=== PATIENT | male | born 1975 | race African-American/Black ===

== ENCOUNTER 2017-12-13 07:36 | Day surgery (SDC) | payer OTHER ==
[2017-12-10 12:15] VITALS: BMI 32.8
[2017-12-13] MEDS ORDERED: CEFAZOLIN/Water 2 GM/20 ML SYRINGE ONE (10:07)
[2017-12-13 10:34] LABS: #Basophils 0.1 thou/uL (0.0-0.2); #Eosinphils 0.2 thou/uL (0.0-0.7); #Lymphocytes 2.3 thou/uL (1.20-3.40); #Monocytes 0.4 thou/uL (0.11-0.59); #Neutrophils 2.1 thou/uL (1.40-6.50); %Basophils 1.2 % (0.0-1.0); %Eosinophils 4.5 % (0.0-10.0); %Monocytes 7.8 % (0.0-10.0); %Neutrophils 41.5 % (42.0-75.0); Hemoglobin 15.6 g/dL (14.0-18.0); Mean Corpuscular HGB CONC 33.1 g/dL (32.0-36.0); Mean Corpuscular Hemoglobin 27.8 pg (27.0-31.0); Mean Corpuscular Volume 84.2 fl (80.0-94.0); Mean Platelet Volume 6.2 fL (7.4-10.4); Platelet Count 231 thou/uL (130-400); RBC Distribution Width 12.6 % (11.5-14.5); Red Blood Cell (RBC) Count 5.59 mill/uL (4.70-6.10)
[2017-12-13 11:11] LABS: Anion Gap 13 mmol/L (10-20); BUN (Urea Nitrogen) 14 mg/dL (8.9-20.6); Calc. Creatinine Clearance 138 mL/min (70-130); Calcium 9.4 mg/dL (7.8-10.44); Carbon Dioxide 25 mmol/L (22-29); Chloride 107 mmol/L (98-107); Estimated GFR-MDRD Greater than 90; Glucose 95 mg/dL (70-105); Potassium 4.6 mmol/L (3.5-5.1); Sodium 140 mmol/L (136-145)
[2017-12-13] MEDS ORDERED: HYDROmorphone 0.5 MG/0.5 ML SYRINGE ONE (12:14)
[2017-12-13] MEDS ORDERED: Midazolam HCl 2 mg/2 ml Vial ONE (12:14)
[2017-12-13] MEDS ORDERED: Fentanyl 100 MCG/2 ML VIAL ONE ×2 (12:14→13:35)
[2017-12-13] MEDS ORDERED: Promethazine HCl 25 MG/ML VIAL ONE (12:14)
--- NOTE | 2017-12-13 13:08 | OP ---
DATE OF PROCEDURE: 12/13/2017 SURGEON: Gómez Coppola M.D. CABLE WORKER HELPER: Alysha Jackman PROCEDURE: Right L5-S1 microdiskectomy. DESCRIPTION OF PROCEDURE: The patient was brought to the operating room and intubated. He was marsha d in the prone position on gel-filled chest rolls. Incision made exposing L5 and S1 on the right and our level was confirmed by x-ray. We performed right L5-S1 hemilaminectomy, removed the yellow liga ment, identified the right S1 nerve root and beneath it there was a large disc herniation. This was incised and debrided in multiple fragments and a complete decompression of right S1 was achieved. Th e wound was extensively irrigated, immaculate hemostasis was secured. Vancomycin powder was applied and the wound was closed in anatomic layers.
[2017-12-13] MEDS ORDERED: HYDROcodone/Acetaminophen 5/325 mg Tablet ONE (15:49)
[2017-12-13] MEDS ORDERED: Lidocaine 1% PF 5 ML VIAL ONE (16:14)
[2017-12-13] MEDS ORDERED: PHENYLEPHRINE-NS 100 MCG/ML 10 ML SYRINGE ONE (16:14)
[2017-12-13] MEDS ORDERED: PROPOFOL 200 MG/20 ML VIAL ONE (16:14)
[2017-12-13] MEDS ORDERED: Glycopyrrolate 0.2 MG/ML 5 ML SYRINGE ONE (16:14)
[2017-12-13] MEDS ORDERED: Ondansetron HCl/PF 4 MG/2 ML Vial ONE (16:14)
--- NOTE | 2017-12-13 21:03 | EKG ---
Test Reason : PREOP Blood Pressure : / mmHG Vent. Rate : 064 BPM Atrial Rate : 064 BPM P-R Int : 156 ms QRS Dur : 088 ms QT Int : 428 ms P-R-T Axes : 065 008 -07 degrees QTc Int : 441 ms Normal sinus rhythm with sinus arrhythmia ST elevation, consider early repolarization, pericarditis, or injury (favor early repolarizati) Abnormal ECG No previous ECGs available Confirmed by ISELA LIU ([id number]) on 12/13/2017 9:03:41 PM Referred By: MARION Confirmed By:ISELA LIU
== END 2017-12-13 16:20 | disposition home or self-care (01) ==
LOC: SDC 07:36 → EEVIPCON 07:36 → SDC 16:20
PROVIDERS: ATTEND Neurological Surgery
PROC: 01NB0ZZ Release Lumbar Nerve, Open Approach (ICD-10-PCS; principal; 2017-12-13)
PROC: 0ST20ZZ Resection of Lumbar Vertebral Disc, Open Approach (ICD-10-PCS; principal; 2017-12-13)
DX: Z79.51 Long term (current) use of inhaled steroids; G43.909 Migraine, unspecified, not intractable, without status migrainosus; M51.17 Intervertebral disc disorders with radiculopathy, lumbosacral region; F41.9 Anxiety disorder, unspecified; Z79.1 Long term (current) use of non-steroidal anti-inflammatories (NSAID); Z79.899 Other long term (current) drug therapy; G47.30 Sleep apnea, unspecified; Z68.32 Body mass index [BMI] 32.0-32.9, adult; F32.9 Major depressive disorder, single episode, unspecified; E78.5 Hyperlipidemia, unspecified; Z99.89 Dependence on other enabling machines and devices; E66.9 Obesity, unspecified
CPT/HCPCS: 76001; 80048; 85025; 93005; 93010; 96374; J1170; J2001; J2250; J2405; J2550; J2704; J3010; J3370

== ENCOUNTER 2018-09-29 13:04 | Outpatient (CLI) | payer OTHER ==
[~2018-09-29 13:04] MED LIST: Gadobenate Dimeglumine 529 MG/1 ML (20ML VIAL) ONE
--- NOTE | 2018-09-29 15:35 | MRI ---
MRI LUMBAR SPINE WITH AND WITHOUT CONTRAST: HISTORY: Patient with back pain that extends into right leg with numbness. FINDINGS: Pre- and [id number] MRI images of the lumbar spine obtained. T12-L1, L1-2: Unremarkable. L2-3, L3-4, and L4-5: There is some mild facet hypertrophy seen. There is a mild broad-based disk b ulge at the L4-5 level. No significant degree of central or neural foraminal narrowing I seen. L5-S1: There is a large right-sided lateral recess disk extrusion. The extruded material has 3 dime nsional measurements of 11 x 7.5 x 16 mm extending into the right epidural space compressing the righ t S1 thecal sac and right S1 nerve root. Mild to moderate left L5-S1 and right L5-S1 neural foramina l narrowing is seen due to facet hypertrophy. IMPRESSION: Large right S1 lateral recess disk extrusion. POS: [facility]
== END 2018-09-29 13:05 | disposition home or self-care (01) ==
LOC: TBSIIMAG 13:04
PROVIDERS: ATTEND Neurological Surgery
DX: M54.16 Radiculopathy, lumbar region (principal); M51.27 Other intervertebral disc displacement, lumbosacral region
CPT/HCPCS: 72158; A9579

== ENCOUNTER 2018-12-12 06:02 | Inpatient (IN) | payer OTHER ==
[2018-12-09 10:42] VITALS: BMI 31.1
[2018-12-12] MEDS ORDERED: Sodium Chloride 0.9% 10 ML ONE (06:35)
[2018-12-12 06:53] LABS: #Basophils 0.1 thou/uL (0.0-0.2); #Eosinphils 0.2 thou/uL (0.0-0.7); #Lymphocytes 2.6 thou/uL (1.20-3.40); #Monocytes 0.4 thou/uL (0.11-0.59); #Neutrophils 2.6 thou/uL (1.40-6.50); %Basophils 1.4 % (0.0-1.0); %Lymphocytes 44.5 % (21.0-51.0); %Neutrophils 44.1 % (42.0-75.0); Hemoglobin 14.5 g/dL (14.0-18.0); Mean Corpuscular HGB CONC 33.7 g/dL (32.0-36.0); Mean Corpuscular Hemoglobin 28.5 pg (27.0-31.0); Mean Corpuscular Volume 84.7 fL (78.0-98.0); Mean Platelet Volume 6.6 fL (7.4-10.4); Platelet Count 243 thou/uL (130-400); RBC Distribution Width 12.5 % (11.5-14.5); Red Blood Cell (RBC) Count 5.09 mill/uL (4.70-6.10); White Blood Cell (WBC) Count 5.8 thou/uL (4.8-10.8)
[2018-12-12] MEDS ORDERED: Midazolam HCl 2 mg/2 ml Vial ONE (06:53)
[2018-12-12] MEDS ORDERED: Fentanyl 100 MCG/2 ML VIAL ONE ×3 (07:00→09:01)
[2018-12-12 07:15] LABS: Anion Gap 12 mmol/L (10-20); BUN (Urea Nitrogen) 14 mg/dL (8.9-20.6); Calc. Creatinine Clearance 125 mL/min (70-130); Calcium 9.3 mg/dL (7.8-10.44); Carbon Dioxide 26 mmol/L (22-29); Chloride 104 mmol/L (98-107); Estimated GFR-MDRD 88; Glucose 92 mg/dL (70-105); Potassium 3.8 mmol/L (3.5-5.1); Sodium 138 mmol/L (136-145)
[2018-12-12] MEDS ORDERED: Morphine 4 MG/ML VIAL ONE (09:03)
[2018-12-12] MEDS ORDERED: Morphine 2 MG/ML SYRINGE ONE ×2 (09:16→09:21)
--- NOTE | 2018-12-12 14:53 | OP ---
DATE OF PROCEDURE: 12/12/2018 CONTENT ASSISTANT: Alexandru Oliver PA-C PROCEDURES PERFORMED: Right L5-S1 laminectomy, facetectomy, foraminotomy, and diskectomy, interbody arthrodesis, intervertebral biomechanical device, local morselized autograft, demineralized bone matrix, posterolateral arthrodesis, and pedicle screw instrumentation, L5-S1. DESCRIPTION OF PROCEDURE: The patient was brought to the operating room and intubated. He was rolled in a prone position on gel-filled chest rolls. The previous incision was reopened and extended and the L5-S1 level was exposed. We performed a right L5-S1 laminectomy, facetectomy, and foraminotomy and explored the right S1 nerve root and scar tissue and found recurrent disk herniation, which was partially calcified as anticipated. This was debrided using curettes and rongeurs. A complete decompression of right S1 was achieved. We next debrided the intervertebral disk and decorticated the bony endplates for the purpose of arthrodesis. An appropriate-sized intervertebral biomechanical PEEK device was brought in the field. It was filled with demineralized bone matrix and local morselized autograft, and tapped into place securely at L5-S1. Next, pedicle screws were placed at right L5 and right S1 using lateral fluoroscopic guidance. The position was confirmed by x-ray. The beatriz was secured between the screws, connected by nuts, which were final tightened. The wound was then extensively irrigated and maximum hemostasis was secured. Combination of demineralized bone matrix and local morselized autograft were laid over the left lamina and posterolateral surfaces for the purpose of arthrodesis. Vancomycin powder was applied and the wound was then closed in anatomic layers. Job ID: [id number]
--- NOTE | 2018-12-13 13:02 | DIS ---
DATE OF ADMISSION: 12/12/2018 DATE OF DISCHARGE: 12/12/2018 HISTORY OF PRESENT ILLNESS: The patient is a 43-year-old male, status post L5-S1 decompression and fusion. Following the surgery, he was transitioned to Day Stay where his pain was well controlled with p.o. medications. He is tolerating a regular diet and is voiding appropriately. The patient was ambulating without any difficulty throughout the department. He is awake, alert, and in no acute distress. He has free active range of motion of all extremities. No focal motor weakness. No reflex asymmetry. Incision is intact and dry. No drainage issues. We will plan to dismiss the patient to home. I discussed home care precautions. The patient was provided with scripts for Helotes, hydrocodone, and Keflex. We will follow up with the patient in 2 weeks. Job ID: [id number]
--- NOTE | 2018-12-13 22:25 | EKG ---
Test Reason : PREOP Blood Pressure : / mmHG Vent. Rate : 048 BPM Atrial Rate : 048 BPM P-R Int : 158 ms QRS Dur : 086 ms QT Int : 432 ms P-R-T Axes : 072 016 -02 degrees QTc Int : 385 ms Marked sinus bradycardia ST elevation, consider early repolarization, pericarditis, or injury Abnormal ECG When compared with ECG of 13-DEC-2017 10:33, QT has shortened Confirmed by Jyothi ROMANO ([id number]) on 12/13/2018 10:25:04 PM Referred By: MARION Confirmed By:Jyothi ROMANO
== END 2018-12-12 14:20 | disposition home or self-care (01) | DRG 460 ==
LOC: SURG A 06:02 → EDSTATUS 16:44
PROVIDERS: ADMIT Neurological Surgery; ATTEND Neurological Surgery
PROC: 0SG30AJ Fusion of Lumbosacral Joint with Interbody Fusion Device, Posterior Approach, Anterior Column, Open Approach (ICD-10-PCS; principal; 2018-12-12)
PROC: 0SB40ZZ Excision of Lumbosacral Disc, Open Approach (ICD-10-PCS; 2018-12-12)
DX: M54.16 Radiculopathy, lumbar region (principal); Z96.642 Presence of left artificial hip joint; Z98.890 Other specified postprocedural states
CPT/HCPCS: 36415; 76000; 80048; 85025; 93005; 93010; C1713; C1768; J2250; J2270; J3010; J3370; J3490

== ENCOUNTER 2018-12-27 13:56 | Outpatient (CLI) | payer OTHER ==
--- NOTE | 2018-12-27 14:22 | RAD ---
Exam: 2 views lumbar spine HISTORY: Lumbar fusion. COMPARISON: None FINDINGS: 5 lumbar type vertebral bodies. 2 body height is maintained. No fracture. Disc prosthesis a t L5-S1. Prosthesis is at the anterior margin of the L5 and S1 disc space. Unilateral right-sided transpedicular screw without evidence of hardware lucency at L5-S1. No significant spondylolisthesis. IMPRESSION: 1. Lumbar fusion at L5-S1. Disc prosthesis is at the anterior margin of the L5-S1 disc space. 2. No evidence of fracture.
== END 2018-12-27 13:57 | disposition home or self-care (01) ==
LOC: TBSIIMAG 13:56
PROVIDERS: ATTEND Neurological Surgery
DX: M54.16 Radiculopathy, lumbar region (principal); Z98.1 Arthrodesis status
CPT/HCPCS: 72100